=== PATIENT | female | born 1995 | race Caucasian/White ===

== ENCOUNTER 2024-07-26 12:07 | Emergency (ER) | payer MEDICAID ==
[~2024-07-26] VITALS: Ht 160 cm; Wt 81.0 kg
[2024-07-26 12:15] VITALS: O2SAT 99
[2024-07-26] MEDS: ACETAMINOPHEN 325MG TABLET PO ONE (13:08)
[2024-07-26] MEDS ORDERED: ACET-2708 MT (13:32)
[2024-07-26 13:45] VITALS: BP 132/76; PULSE 89; RESP 20; TEMP 36.9; O2SAT 99
== END 2024-07-26 13:45 | disposition home or self-care (01) ==
LOC: ER 12:07
DX: M67.431 Ganglion, right wrist (principal)
CPT/HCPCS: 99283; 73110; A6449